=== PATIENT | female | born 1970 | race Caucasian/White ===

== ENCOUNTER 2021-01-01 08:12 | Outpatient (CLI) | payer SELFPAY ==
[2021-01-01 08:55] VITALS: BP 98/63; PULSE 84; TEMP 36.7; O2SAT 98; BMI 25.6
[2021-01-01 09:15] VITALS: BP 99/63; PULSE 70; RESP 17; O2SAT 99
[2021-01-01 10:16] VITALS: BP 109/69; PULSE 67; RESP 16; TEMP 36.8; O2SAT 99
== END 2021-01-01 08:13 | disposition home or self-care (01) ==
PROVIDERS: PCP Internal Medicine; Visit Provider Nurse Practitioner Family
DX: U07.1 COVID-19 (principal)
CPT/HCPCS: 96365

== ENCOUNTER 2021-10-11 15:18 | Outpatient (CLI) | payer SELFPAY ==
--- NOTE | 2021-10-11 15:46 | ECG_ITS ---
[facility] Test Date: 2021-10-11 Pat Name: Roberta Ortega Department: Room: Gender: Female [employer] Teacher: : 1970 Requested By: Melvin Romo Order Number: [id number] Roland MD: Kyle Walker M.D. Measurements Intervals [place] Rate: 70 P: -36 WI: 143 QRS: 61 QRSD: 89 T: 66 QT: 357 QTc: 385 Interpretive Statements SINUS RHYTHM Compared to ECG 03/10/2017 18:04:38 No significant changes Electronically Signed On 10-11-2021 19:41:49 CDT by Kyle Walker M.D. [id number]
== END 2021-10-11 15:19 | disposition home or self-care (01) ==
LOC: RT 15:22
PROVIDERS: PCP Internal Medicine; Visit Provider Internal Medicine
DX: E88.81 Metabolic syndrome and other insulin resistance (principal)
CPT/HCPCS: 80048; 85025; 93005